=== PATIENT | male | born 1990 | race Caucasian/White ===

== ENCOUNTER 2023-10-12 16:36 | Emergency (ER) | payer OTHER, SELFPAY ==
[2023-10-12 16:41] VITALS: BP 135/84
--- NOTE | 2023-10-12 19:15 | ED.GENMED ---
History of Present Illness
General
Chief Complaint: Wound Check/Suture Removal
Source: patient
Exam Limitations: none
Time Seen by Provider: 10/12/23 19:01
Nursing documentation reviewed up to this point in time: agreed with
Travel History
Have you had any contact with someone who has COVID-19?: No
Do you have any symptoms of coronavirus? Fever > 100 degrees, chills, cough, shortness of breath, sore throat, loss of taste or smell, muscle aches, or headache?: No
History of Present Illness
History of Present Illness:
Patient to ED for staple removal right scrotum States he had enhancement surgery 2 weeks ago in [facility]. Was given staple remover for him to remove dash on own. brought self to ED for removal.
Past History
Past History
ED Past Medical History: None
ED Past Surgical History: Urological (penile implant, enhancement surgery)
Review of Systems
Review of Systems
Allergies reviewed?: Yes
All Other Systems: ROS reviewed and negative except as documented in HPI and ROS
Constitutional: Reports no symptoms
: Reports no symptoms
Musculoskeletal: Reports no symptoms
Skin: Reports other (dash intact right scrotum)
Neurological: Reports no symptoms
Psychiatric: Reports no symptoms
Phy Exam
General Physical Exam
General Presentation: well appearing and no apparent distress
General age: appears stated age
General Skin: warm and dry
General Habitus: normal
Gastrointestinal Exam
Gastrointestinal Exam: non tender and soft
Genitourinary Exam Male
Exam Male: circumcised and other (right scrotal incision with dash intact. Removed without incident.)
Musculoskeletal Exam
Musculoskeletal Exam: full ROM and neuro vasc intact
Skin Exam
Skin Exam: normal color, warm/dry and no rash
Psychiatric Exam
Psychiatric Exam: normal mood/affect
Course
Vital Signs
Initial and Last Documented VS:
Initial Vital Signs
Temp Pulse Resp BP Pulse Ox
98.2 F 72 17 135/84 99
10/12/23 16:41 10/12/23 16:41 10/12/23 16:41 10/12/23 16:41 10/12/23 16:41
Last Documented Vital Signs
Temp Pulse Resp BP Pulse Ox
98.2 F 72 17 135/84 99
10/12/23 16:41 10/12/23 16:41 10/12/23 16:41 10/12/23 16:41 10/12/23 16:41
*Critical Care Note
Total Time (30-74mins, 75-104mins- exclusive of procedures): Not Applicable
ED Attending Note
-
Portions of this chart may have been created with voice recognition software.� Occasional wrong word or��sound alike� substitutions may have occurred due to the inherent limitations of voice recognition software.
Discharge Plan
Departure
Patient Disposition: Home (Routine Discharge)
Date of Disposition: 10/12/23
Time of Disposition: 19:12
Patient with high blood pressure during this ER visit?: No
Condition: Good
Covid-19: Not Applicable
Discharge Problem:
Encounter for removal of dash
Instructions: Wound Care (DC), Staple Removal
Activity Restrictions/Additional Instructions:
Follow up with your family doctor
Interventions
Interventions:
*ED COVID-19 Vaccine History Last Done: 10/12/23 16:43
== END 2023-10-12 19:26 | disposition home or self-care (01) ==
LOC: EMR 16:36
PROVIDERS: EMERGENCY PHYSICIAN Emergency Medicine; FAMILY PHYSICIAN Internal Medicine
DX: Z48.02 Encounter for removal of sutures (principal)
CPT/HCPCS: 99281

== ENCOUNTER 2023-10-28 20:12 | Emergency (ER) | payer OTHER, SELFPAY ==
[2023-10-28 20:18] VITALS: BP 145/88
[2023-10-28 20:59] LABS: Hematocrit 43.5 % (39.0-52.0); Hemoglobin 15.1 g/dL (13.0-18.0); Mean Corp Hgb Conc. 34.7 g/dL (33.0-37.0); Mean Corpuscular Hgb 28.1 pg (27.0-31.0); Mean Corpuscular Volume 80.9 fL (80.0-94.0); Mean Platelet Volume 10.7 fL (7.4-10.4); Platelet Count 246 10^3/uL (130-400); Red Blood Cell Count 5.38 10^6/uL (4.70-6.10); Red Cell Dist. Width 12.7 % (11.5-14.5); White Blood Cell Count 8.6 10^3/uL (4.8-10.8)
[2023-10-28 21:14] LABS: Blood Urea Nitrogen 15 mg/dl (9-20); Calcium 9.1 mg/dl (8.4-10.2); Carbon Dioxide 29 mmol/L (22-30); Chloride 100 mmol/L (98-107); Glucose 105 mg/dl (70-99); Sodium 137 mmol/L (135-145); eGFR > 60.00
[2023-10-28 22:32] VITALS: BMI 27.7
[2023-10-28 23:29] VITALS: BP 124/74
--- NOTE | 2023-10-28 23:29 | ED.GENMED ---
History of Present Illness
General
Chief Complaint: Male Genito-Urinary Symptoms
Source: patient
Exam Limitations: none
Time Seen by Provider: 10/28/23 23:11
Nursing documentation reviewed up to this point in time: agreed with
Travel History
Have you had any contact with someone who has COVID-19?: No
Do you have any symptoms of coronavirus? Fever > 100 degrees, chills, cough, shortness of breath, sore throat, loss of taste or smell, muscle aches, or headache?: No
History of Present Illness
History of Present Illness:
33-year-old male presents emerged from complaining of swelling in his incision site on his scrotum. He had dash removed 2 weeks ago, and had surgery 6 to 8 weeks ago, penile implant. He denies any fevers.
Past History
Past History
ED Past Medical History: None
ED Past Surgical History: Urological (penile implant, enhancement surgery)
Social History
Tobacco: Non-smoker
Alcohol: Binge drinker
Drug: None
Review of Systems
Review of Systems
Allergies reviewed?: Yes
All Other Systems: Not applicable
Constitutional: Reports no symptoms
EENT: Reports no symptoms
Respiratory: Reports no symptoms
Cardiac: Reports no symptoms
ABD/GI: Reports no symptoms
: Reports other (Scrotal swelling)
Musculoskeletal: Reports no symptoms
Skin: Reports no symptoms
Neurological: Reports no symptoms
Endocrine: Reports no symptoms
Hematologic/Lymphatic: Reports no symptoms
Psychiatric: Reports no symptoms
Phy Exam
Physical Exam
Physical Exam:
Physical Exam
General: no apparent distress, not acutely ill
Neck: supple. no meningeal signs. normal posterior pharynx
Heart: s1/s2 regular rate and rhythm, no murmur. equal radial
pulses.
HEENT: Pupils equal round reactive to light, EOMI
Lungs: no acute respiratory distress. clear bilaterally
Abdomen: normal bowel sounds. not tender. no CVAT
Neuro: alert and oriented. no focal neurological deficits cranial nerves II through XII intact
: no rash, mild right groin swelling, incision healing and intact, penile implant in place
Psychiatric: well kept. interactive and cooperative
Extremities: no edema. no calf tenderness. negative homans. good distal pulses
Course
Orders/Labs/Results
Orders:
Orders
10/28/23 20:34
Complete Blood Count/No Diff Urgent
10/28/23 20:35
BMP [Basic Metabolic Panel] Urgent
10/29/23 23:18
US Scrotum Urgent
Reason For Exam: right groin/scrotum swelling, penile implant 8 wks
Abnormal Lab Results
10/28/23 10/28/23
20:34 20:35
MPV 10.7 H fL
(7.4-10.4)
Glucose 105 H mg/dl
(70-99)
10/28/23 20:34
10/28/23 20:35
Vital Signs
Initial and Last Documented VS:
Initial Vital Signs
Temp Pulse Resp BP Pulse Ox
98.1 F 73 18 145/88 96
10/28/23 20:18 10/28/23 20:18 10/28/23 20:18 10/28/23 20:18 10/28/23 20:18
Last Documented Vital Signs
Temp Pulse Resp BP Pulse Ox
98.1 F 68 14 122/82 95
10/28/23 20:18 10/29/23 01:21 10/29/23 01:21 10/29/23 01:19 10/29/23 01:19
MDM/Problems Addressed
Differential Diagnosis Includes:
Groin abscess, seroma
MDM/Problems Addressed:
33-year-old male with postoperative swelling, no abscess seroma or infection seen. Stable for discharge. Patient is recommended follow-up with urologist who performed surgery.
*Radiology
Radiology exam reviewed: radiology read reviewed (Ultrasound scrotum and groin no acute findings)
*Pulse Oximetry
Patient hypoxic: no
*EKG
Interpreted by ED Provider?: NA
*Resin Remover Interpretation
Rate: Resin Remover- N/A
*Critical Care Note
Total Time (30-74mins, 75-104mins- exclusive of procedures): Not Applicable
Patient Management
Social determinants of health affecting care: Living situation and Strong social support
Escalation/DeEscalation of care consider admission/obs:
Admit not indicated
ED Attending Note
-
Portions of this chart may have been created with voice recognition software.� Occasional wrong word or��sound alike� substitutions may have occurred due to the inherent limitations of voice recognition software.
Discharge Plan
Departure
Patient Disposition: Home (Routine Discharge)
Date of Disposition: 10/29/23
Time of Disposition: 01:47
Patient with high blood pressure during this ER visit?: Yes
Condition: Good
Discharge Problem:
Visit for wound check
Instructions: Surgical Wound (DC), BLOOD PRESSURE
Referrals:
Jese Good MD [Active] - Call in 1-3 days for appt
Larissa Garcia MD [Family Provider] -
Interventions
Interventions:
*Risk Screen - Suicide Last Done: 10/28/23 20:18
*General Assessment Last Done: 10/28/23 20:18
*Neglect/Abuse Screening Last Done: 10/28/23 20:18
ED- Fall Risk Assessment Last Done: 10/28/23 20:18
*ED COVID-19 Vaccine History Last Done: 10/28/23 20:18
ED-Male Genitourinary Assessment Last Done: 10/28/23 23:25
[2023-10-29] VITALS: BP 131/84
[2023-10-29 01:17] VITALS: BP 126/89
[2023-10-29 01:19] VITALS: BP 122/82
== END 2023-10-29 01:55 | disposition home or self-care (01) ==
LOC: EMR 20:12
PROVIDERS: EMERGENCY PHYSICIAN Emergency Medicine; FAMILY PHYSICIAN Internal Medicine
DX: R19.00 Intra-abdominal and pelvic swelling, mass and lump, unspecified site (principal); Z48.00 Encounter for change or removal of nonsurgical wound dressing; N43.3 Hydrocele, unspecified; R03.0 Elevated blood-pressure reading, without diagnosis of hypertension
CPT/HCPCS: 99284; 76870; 80048; 85027; 93976

== ENCOUNTER 2023-11-02 01:47 | Emergency (ER) | payer OTHER, SELFPAY ==
[2023-11-02 01:53] VITALS: BP 123/83
--- NOTE | 2023-11-02 02:56 | ED.GENMED ---
Addendum entered and electronically signed by Judy Lopez NP 11/09/23 23:53:
Final wound culture results read. Pt notified of need for change in antibiotic. Rx for Levaquin sent to his pharmacy. told to stop the Bactrim and Keflex.
Addendum entered and electronically signed by Sandra Byrne PA-C 11/05/23 16:01:
I left patient a message on his phone and I did call his mom letting them know that he may need a different antibiotic. Patient apparently had outpatient surgery at a different hospital in [place] yesterday for his scrotal abscess. He is back home and
did not answer his phone but his mom said that she would make sure that he call back. Patient was originally given Keflex and then added Bactrim when he was here couple of days ago. The culture grew out Pseudomonas and is pansensitive. Can switch
him to Levaquin.
I was planning on waiting to call in the prescription until I heard from the patient in case his surgeon put him on antibiotics already
Original Note:
History of Present Illness
<ARABELLA Ivey - Last Filed: 11/02/23 05:30>
General
Chief Complaint: Skin Problem
Source: patient
Exam Limitations: none
Time Seen by Provider: 11/02/23 02:41
Nursing documentation reviewed up to this point in time: agreed with
Travel History
Have you had any contact with someone who has COVID-19?: No
Do you have any symptoms of coronavirus? Fever > 100 degrees, chills, cough, shortness of breath, sore throat, loss of taste or smell, muscle aches, or headache?: No
History of Present Illness
History of Present Illness:
33 y/o M presents to ED complaining of right scrotal drainage from incision site starting tonight. Patient had penile implantation enhancement surgery on September 28, 2023. Patient reports he thinks there is a cyst at the incision site that has
popped and is now draining yellow/orange discharge. Patient states he is not having pain now but was having right sided testicular pain prior to tonight. Patient was seen in ED on October 28 because he was concerned about a cyst forming at the
incision site along with swelling. He reports the swelling and pain began a few weeks after surgery. Patient had US done at time which was normal and was advised to follow up with surgeon who did surgery. Patient states he reached out the the
surgeon who is in [facility] and was told it is likely an infection. He was prescribed Keflex and is currently on the last few days of it. He states the surgeon wants to see him Tuesday but he prefers to be treated here for an infection as he does
not want to go down to [place]. Denies dysuria, incontinence, fevers, chills, nausea or vomiting.
If applicable-neuro sx onset
Onset of symptoms known: Yes
Date of onset of symptoms: 11/02/23
Past History
<ARABELLA Ivey - Last Filed: 11/02/23 05:30>
Past History
ED Past Medical History: None
ED Past Surgical History: Urological (penile implant, enhancement surgery)
Social History
Tobacco: Non-smoker
Alcohol: Binge drinker
Drug: None
Review of Systems
<ARABELLA Ivey - Last Filed: 11/02/23 05:30>
Review of Systems
Allergies reviewed?: Yes
All Other Systems: ROS reviewed and negative except as documented in HPI and ROS
Constitutional: Reports no symptoms
EENT: Reports no symptoms
Respiratory: Reports no symptoms
Cardiac: Reports no symptoms
ABD/GI: Reports no symptoms
: Reports discharge
Musculoskeletal: Reports no symptoms
Skin: Reports no symptoms
Neurological: Reports no symptoms
Endocrine: Reports no symptoms
Hematologic/Lymphatic: Reports no symptoms
Psychiatric: Reports no symptoms
Phy Exam
<ARABELLA Ivey - Last Filed: 11/02/23 05:30>
General Physical Exam
General Presentation: well appearing and no apparent distress
General age: appears stated age
General Skin: warm and dry
General Habitus: normal
General Mental: alert
General Hydration: appears well hydrated
Cardiovascular Exam
Cardiovascular Exam: regular rate/rhythm, no edema, no gallop, no murmur and normal peripheral pulses
Pulmonary Exam
Pulmonary Exam: lungs clear, no respiratory distress, no rales, no crackles and no rhonchi
Gastrointestinal Exam
Gastrointestinal Exam: non tender, soft and non distended
Neurological Exam
Neurological Exam: alert and oriented x3
Skin Exam
Skin Exam: normal color, warm/dry and no rash
Psychiatric Exam
Psychiatric Exam: normal mood/affect
Course
<ARABELLA Ivey - Last Filed: 11/02/23 05:30>
Orders/Labs/Results
Orders:
Orders
11/02/23 04:17
Sulfamethox./Trimethoprim Ds [Bactrim Ds 800 mg/160 mg] 1 tablet PO NOW STA
11/02/23 04:26
Wound Culture [Wound/Abscess/Other Culture] Urgent
JORDEN Source: Abscess
Specimen Description:
Date Specimen was Collected: 11/02/23
Time Specimen was Collected: 04:19
Comment: scrotum
Vital Signs
Initial and Last Documented VS:
Initial Vital Signs
Temp Pulse Resp BP Pulse Ox
98.1 F 78 18 123/83 96
11/02/23 01:53 11/02/23 01:53 11/02/23 01:53 11/02/23 01:53 11/02/23 01:53
Last Documented Vital Signs
Temp Pulse Resp BP Pulse Ox
98.1 F 78 18 123/83 96
11/02/23 01:53 11/02/23 01:53 11/02/23 01:53 11/02/23 01:53 11/02/23 01:53
<Adithya Isaac DO - Last Filed: 11/02/23 06:20>
Orders/Labs/Results
Orders:
Orders
11/02/23 04:17
Sulfamethox./Trimethoprim Ds [Bactrim Ds 800 mg/160 mg] 1 tablet PO NOW STA
11/02/23 04:26
Wound Culture [Wound/Abscess/Other Culture] Urgent
JORDEN Source: Abscess
Specimen Description:
Date Specimen was Collected: 11/02/23
Time Specimen was Collected: 04:19
Comment: scrotum
Vital Signs
Initial and Last Documented VS:
Initial Vital Signs
Temp Pulse Resp BP Pulse Ox
98.1 F 78 18 123/83 96
11/02/23 01:53 11/02/23 01:53 11/02/23 01:53 11/02/23 01:53 11/02/23 01:53
Last Documented Vital Signs
Temp Pulse Resp BP Pulse Ox
98.1 F 78 18 123/83 96
11/02/23 01:53 11/02/23 01:53 11/02/23 01:53 11/02/23 01:53 11/02/23 01:53
<ARABELLA Ivey - Last Filed: 11/02/23 05:30>
MDM/Problems Addressed
Differential Diagnosis Includes:
Post op incision infection
MDM/Problems Addressed:
33 y/o M post op penile implant presents to ED with incision site drainage and resolving pain. Patient had US 1 week ago at ED which was normal. Patient drainage may be secondary to infection at site. Patient is already on Keflex and is in middle of
completing dose.
<Adithya Isaac DO - Last Filed: 11/02/23 06:20>
*Critical Care Note
Total Time (30-74mins, 75-104mins- exclusive of procedures): Not Applicable
ED Attending Note
<JillianARABELLA Zamarripa - Last Filed: 11/02/23 05:30>
-
Portions of this chart may have been created with voice recognition software.� Occasional wrong word or��sound alike� substitutions may have occurred due to the inherent limitations of voice recognition software.
<Adithya Isaac DO - Last Filed: 11/02/23 06:20>
ED Attending Note
Patient seen and examined by attending physician: Yes
I performed the substantive portion of visit, reviewed & personally made and approve the management plan that is documented in note by myself or NKIA.: Yes
ED Attending Note:
Pleasant 33-year-old male that presents with scrotal discharge from a likely ruptured abscess. Patient had a penile implant surgery few weeks ago and he felt that the incision site was infected. He states that it enlarged was having right-sided
testicular pain for the last several days. He was seen in the emergency department 5 days ago and had an ultrasound at that time. Patient was started on Keflex. He has been taking it consistently. Patient had the surgery in [facility] and he
spoke with the surgeon who for him and to the schedule on Tuesday. Patient prefers not to go down to [place]. Patient was seen in conjunction with the PA student. I have reviewed and agree with the history and treatment plan presented. On my
independent physical exam, patient is awake, alert, and oriented x3, no acute distress focused physical exam: Genitals, penile shaft is wrapped. There is no obvious discharge noted. Right scrotal sac has a small area where purulent discharge is
draining. This purulent discharge was cultured. There is appear to be no blood in the fluid. Since patient is already on Keflex, I will add Bactrim. I did encourage patient to follow-up with his surgeon as an infection may seed a prosthesis.
Patient states that he will follow-up. No incision and drainage necessary today due to the spontaneous rupture and consistent draining prior to arrival
Discharge Plan
Departure
Patient Disposition: Home (Routine Discharge)
Date of Disposition: 11/02/23
Time of Disposition: 04:24
Patient with high blood pressure during this ER visit?: Yes
Condition: Good
Discharge Problem:
Postoperative complication of skin involving drainage from surgical wound
Instructions: Wound Care (DC), Skin Abscess
Prescriptions:
New
sulfamethoxazole-trimethoprim [Bactrim DS] 800-160 mg tablet
1 tab PO BID Qty: 20 0RF
No Action
Keflex
1 cap PO TID
Patient Comments:
unsure of mg
Referrals:
Larissa Garcia MD [Family Provider] -
Activity Restrictions/Additional Instructions:
It was a pleasure meeting you and taking part in your care. We hope for your continued healing and wellness.
Please read discharge instructions in their entirety. However, they are for general education and may not describe your exact diagnosis at discharge. Information on your ER visit and medical conditions were discussed with you along with appropriate
follow up information...
If indicated, please take your medications as instructed and indicated on discharge paperwork.
Please schedule a follow up appointment as directed. Call to schedule an appointment
Please return to the emergency department with ANY change in, persisting, or worsening of symptoms. If any of your symptoms do not improve, or persist, or become more severe within 6-12 hours, please return to the emergency department for further
care.
Please return to the emergency department if you develop a headache, neck pain/stiffness, fever greater than 100.4F, chest pain, shortness of breath, persistent nausea, vomiting, slurred speech, difficulty walking, numbness/tingling, weakness, signs
of infection or any other symptoms that are worrisome to you.
If you have any questions or concerns please do not hesitate to call the Hospital at or E-mail me directly at [email or web address]
Interventions
Interventions:
*Risk Screen - Suicide Last Done: 11/02/23 01:53
*General Assessment Last Done: 11/02/23 01:53
*Neglect/Abuse Screening Last Done: 11/02/23 01:53
ED- Fall Risk Assessment Last Done: 11/02/23 01:53
*ED COVID-19 Vaccine History Last Done: 11/02/23 01:53
*Nursing Disposition Last Done: 11/02/23 04:30
ED-Skin Assessment Last Done: 11/02/23 03:15
Discharge Date and Time
Discharge Date/Time: 11/02/23 04:30
[2023-11-02] MEDS: BACTRIM DS 800 MG/160 MG 1 TABLET PO (04:27)
== END 2023-11-02 04:30 | disposition home or self-care (01) ==
LOC: EMR 01:47
PROVIDERS: EMERGENCY PHYSICIAN Student in an Organized Health Care Education/Training Program; FAMILY PHYSICIAN Internal Medicine
DX: L76.82 Other postprocedural complications of skin and subcutaneous tissue (principal); R03.0 Elevated blood-pressure reading, without diagnosis of hypertension
CPT/HCPCS: 99283; 87070; 87077; 87186; 87205